=== PATIENT | male | born 1980 | race Caucasian/White ===

== ENCOUNTER 2019-03-23 20:09 | Emergency (ER) | payer BC, OTHER ==
--- NOTE | 2019-03-23 20:18 | EDM.PDOC ---
ED HPI GENERAL MEDICAL PROBLEM - General Chief Complaint: Lower Extremity Injury/Pain Stated Complaint: AMB KNEE INJURY Time Seen by Provider: 03/23/19 20:15 - History of Present Illness INITIAL COMMENTS - FREE TEXT/NARRATIVE: HISTORY AND PHYSICAL: History of present illness: Patient is a 38-year-old white male with history of intermittent patellar subluxation presents with a concern of right patellar subluxation similar prior this is laterally displaced and he presents via paramedics. He denies other trauma or concern Review of systems: As per history of present illness and below otherwise all systems reviewed and negative. Past medical history: As per history of present illness and as reviewed below otherwise noncontributory. Surgical history: As per history of present illness and as reviewed below otherwise noncontributory. Social history: No reported history of drug or alcohol abuse. Family history: As per history of present illness and as reviewed below otherwise noncontributory. Physical exam: HEENT: Atraumatic, normocephalic, pupils reactive, negative for conjunctival pallor or scleral icterus, mucous membranes moist, throat clear, neck supple, nontender, trachea midline. Lungs: Clear to auscultation, breath sounds equal bilaterally, chest nontender. Heart: S1S2, regular, negative for clicks, rubs, or JVD. Abdomen: Soft, nondistended, nontender. Negative for masses or hepatosplenomegaly. Negative for costovertebral tenderness. Pelvis: Stable nontender. Genitourinary: Deferred. Rectal: Deferred. Extremities: Obvious lateral subluxation of his patella that on arrival with extension and minor manipulation reduced successfully neurovascular exam status post is normal Neuro: Awake, alert, oriented. Cranial nerves II through XII unremarkable. Cerebellum unremarkable. Motor and sensory unremarkable throughout. Exam nonfocal. Diagnostics: X-ray right knee Therapeutics: Knee immobilizer right knee Impression: #1 patellar subluxation status post reduction Definitive disposition and diagnosis as appropriate pending reevaluation and review of above. - Related Data Allergies Allergy/AdvReac Type Severity Reaction Status Date / Time No Known Allergies Allergy Verified 03/23/19 20:14 Home Meds: Home Meds . [No Known Home Meds] 03/23/19 [History] Review of Systems - Review of Systems Review Of Systems: ROS reveals no pertinent complaints other than HPI. ED EXAM, GENERAL - Physical Exam Exam: See Below (See dictation) Departure - Departure Time of Disposition: 20:17 Disposition: Home, Self-Care 01 Condition: Good Clinical Impression: Patellar subluxation - Discharge Information Referrals: PCP,None [Primary Care Provider] - Additional Instructions: The following information is given to patients seen in the emergency department who are being discharged to home. This information is to outline your options for follow-up care. We provide all patients seen in our emergency department with a follow-up referral. The need for follow-up, as well as the timing and circumstances, are variable depending upon the specifics of your emergency department visit. If you don't have a primary care physician on staff, we will provide you with a referral. We always advise you to contact your personal physician following an emergency department visit to inform them of the circumstance of the visit and for follow-up with them and/or the need for any referrals to a consulting specialist. The emergency department will also refer you to a specialist when appropriate. This referral assures that you have the opportunity for followup care with a specialist. All of these measure are taken in an effort to provide you with optimal care, which includes your followup. Under all circumstances we always encourage you to contact your private physician who remains a resource for coordinating your care. When calling for followup care, please make the office aware that this follow-up is from your recent emergency room visit. If for any reason you are refused follow-up, please contact the [facility] emergency department at and asked to speak to the emergency department charge nurse. [facility] Professional [address], [address] [place] [address] Knee immobilizer as directed follow-up orthopedic surgery/private medical doctor as needed as discussed and return as needed as discussed
--- NOTE | 2019-03-23 20:58 | CR ---
INDICATION: Postreduction COMPARISON: None available. TECHNIQUE: The right knee was examined with AP and lateral views for a total of two views. FINDINGS: Examination is performed through an external stabilizer which limits fine detail. There is no sign of fracture or dislocation. The medial and lateral compartments are normal in height. The external stabilizer partially obscures the suprapatellar region, and I cannot exclude a joint effusion. No soft tissue abnormality is seen. IMPRESSION: Anatomic alignment of the knee following reduction. Cannot exclude a joint effusion. Dictated by Quoc Larios MD @ Mar 23 2019 8:54PM Signed by Dr. Quoc Larios @ Mar 23 2019 8:57PM
== END 2019-03-23 21:15 | disposition home or self-care (01) ==
LOC: MW.ED 20:09
DX: S83.001A Unspecified subluxation of right patella, initial encounter (principal); X58.XXXA Exposure to other specified factors, initial encounter
CPT/HCPCS: 73560-26-RT; 73560-RT; 99284-25

== ENCOUNTER 2021-05-04 10:08 | Emergency (ER) | payer OTHER ==
--- NOTE | 2021-05-04 10:14 | EDM.PDOC ---
ED HPI GENERAL MEDICAL PROBLEM - General Stated Complaint: CHEST PAINS Time Seen by Provider: 05/04/21 10:13 Source of Information: Reports: Patient History Limitations: Reports: No Limitations - History of Present Illness INITIAL COMMENTS - FREE TEXT/NARRATIVE: 40-year-old male past medical history hypertension presents for chest pain. Patient states that pain started about 4 or 5 hours ago while he was laying down trying to go to sleep. It is a mid substernal pressure-like pain. He can also feel his heart racing. Denies nausea, vomiting, diaphoresis. Denies histories of blood clots. Denies lower extremity swelling or pain. CHEST Pain Score (Numeric/FACES): 4 - Related Data Allergies Allergy/AdvReac Type Severity Reaction Status Date / Time No Known Allergies Allergy Verified 05/04/21 10:41 Home Meds: Home Meds Diltiazem HCl [Cardizem LA] 120 mg PO DAILY #14 tab.sr.24h 05/04/21 [Rx] Metoprolol Succinate [[place] Sprinkle] 05/04/21 [History] Past Medical History HEENT History: Reports: None Cardiovascular History: Reports: None Respiratory History: Reports: None Gastrointestinal History: Reports: None Genitourinary History: Reports: None Musculoskeletal History: Reports: None Neurological History: Reports: None Psychiatric History: Reports: None Endocrine/Metabolic History: Reports: None Hematologic History: Reports: None Immunologic History: Reports: None Oncologic (Cancer) History: Reports: None Dermatologic History: Reports: None - Past Surgical History Head Surgeries/Procedures: Reports: None HEENT Surgical History: Reports: None Cardiovascular Surgical History: Reports: None Respiratory Surgical History: Reports: None GI Surgical History: Reports: None Male Surgical History: Reports: None Endocrine Surgical History: Reports: None Neurological Surgical History: Reports: None Musculoskeletal Surgical History: Reports: None Oncologic Surgical History: Reports: None Dermatological Surgical History: Reports: None Social & Family History - Family History Family Medical History: No Pertinent Family History - Caffeine Use Caffeine Use: Reports: Coffee ED ROS GENERAL - Review of Systems Review Of Systems: Comprehensive ROS is negative, except as noted in HPI. ED EXAM, GENERAL - Physical Exam Exam: See Below Exam Limited By: No Limitations General Appearance: Alert, WD/WN, No Apparent Distress Ears: Hearing Grossly Normal Throat/Mouth: Normal Voice, No Airway Compromise Head: Atraumatic, Normocephalic Neck: Normal Inspection Respiratory/Chest: No Respiratory Distress, Lungs Clear, Normal Breath Sounds, No Accessory Muscle Use Cardiovascular: Normal Peripheral Pulses, No Edema, Tachycardia, Irregularly Irregular Extremities: Normal Inspection, Other (Lower extremities symmetric without any erythema, warmth, tenderness to palpation) Neurological: Alert, Normal Cognition, Normal Gait Psychiatric: Normal Affect, Normal Mood Skin Exam: Warm, Dry, Intact, Normal Color #1 Interpretation EKG Date: 05/04/21 Time: 01:00 Rhythm: A-Fib Rate (Beats/Min): 100 [place]: Normal P-Wave: Absent QRS: Normal ST-T: Depressed (<1-mm in V2, V3, V4, V5, V6) QT: Normal Comparison: NA - No Prior EKG EKG Interpretation Comments: atrial fibrillation, STD in lateral leads Course - Vital Signs Last Recorded V/S: Last Vital Signs Temp 98.2 F 05/04/21 10:15 Pulse 71 05/04/21 11:36 Resp 18 05/04/21 11:36 BP 108/75 05/04/21 11:36 Pulse Ox 97 05/04/21 11:36 - Orders/Labs/Meds Orders: Active Orders 24 hr Category Date Time Status Cardiac Monitoring [RC] . DIRECTED Care 05/04/21 10:16 Active EKG Documentation Completion [RC] STAT Care 05/04/21 10:16 Active Pulse Oximetry [RC] ASDIRECTED Care 05/04/21 10:16 Active Sodium Chloride 0.9% [Saline Flush] Med 05/04/21 10:16 Active 10 ml FLUSH ASDIRECTED PRN Sodium Chloride 0.9% [Saline Flush] Med 05/04/21 10:16 Active 2.5 ml FLUSH ASDIRECTED PRN Saline Lock Insert [OM.PC] Stat Oth 05/04/21 10:16 Ordered Medication Orders Sodium Chloride (Sodium Chloride 0.9% 10 Ml Syringe) 10 ml FLUSH ASDIRECTED PRN PRN Reason: Keep Vein Open Last Admin: 05/04/21 10:28 Dose: 10 ml Documented by: CHAIM Sodium Chloride (Sodium Chloride 0.9% 2.5 Ml Syringe) 2.5 ml FLUSH ASDIRECTED PRN PRN Reason: Keep Vein Open Last Admin: 05/04/21 10:28 Dose: 2.5 ml [facility]ed [facility] Labs: Laboratory Tests 05/04/21 05/04/21 05/04/21 Range/Units 10:30 10:30 10:30 WBC 9.31 (4.0-11.0) K/uL RBC 5.58 (4.50-5.90) M/uL Hgb 17.1 H (13.0-17.0) g/dL Hct 47.9 (38.0-50.0) % MCV 85.8 (80.0-98.0) fL MCH 30.6 (27.0-32.0) pg MCHC 35.7 (31.0-37.0) g/dL RDW Std Deviation 40.4 (28.0-62.0) fl RDW Coeff of Levi 13 (11.0-15.0) % Plt Count 235 (150-400) K/uL MPV 11.90 (7.40-12.00) fL Neut % (Auto) 53.7 (48.0-80.0) % Lymph % (Auto) 36.3 (16.0-40.0) % Forrest % (Auto) 8.6 (0.0-15.0) % Eos % (Auto) 1.2 (0.0-7.0) % Baso % (Auto) 0.2 (0.0-1.5) % Neut # (Auto) 5.0 (1.4-5.7) K/uL Lymph # (Auto) 3.4 H (0.6-2.4) K/uL Forrest # (Auto) 0.8 (0.0-0.8) K/uL Eos # (Auto) 0.1 (0.0-0.7) K/uL Baso # (Auto) 0.0 (0.0-0.1) K/uL Nucleated RBC % 0.0 /100WBC Nucleated RBCs # 0 K/uL INR 1.09 APTT 27.2 (18.6-31.3) SEC D-Dimer, Quantitative 0.20 (0.0-0.50) mg/L FEU Sodium 138 (136-148) mmol/L Potassium 3.4 L (3.5-5.1) mmol/L Chloride 103 (98-107) mmol/L Carbon Dioxide 22.8 (21.0-32.0) mmol/L BUN 19 H (7.0-18.0) mg/dL Creatinine 1.2 (0.8-1.3) mg/dL Est Cr Clr Drug Dosing 102.47 mL/min Estimated GFR (MDRD) > 60.0 ml/min Glucose 109 H (74-106) mg/dL Calcium 9.4 (8.5-10.1) mg/dL Total Bilirubin 0.4 (0.2-1.0) mg/dL AST 25 (15-37) IU/L ALT 45 (14-63) IU/L Alkaline Phosphatase 72 (46-116) U/L Troponin I < 0.050 (0.000-0.056) ng/mL B-Natriuretic Peptide (<100) PG/ML Total Protein 7.8 (6.4-8.2) g/dL Albumin 3.9 (3.4-5.0) g/dL Globulin 3.9 (2.6-4.0) g/dL Albumin/Globulin Ratio 1.0 (0.9-1.6) TSH, Ultra Sensitive 1.04 (0.36-3.74) uIU/mL 05/04/21 Range/Units 10:30 WBC (4.0-11.0) K/uL RBC (4.50-5.90) M/uL Hgb (13.0-17.0) g/dL Hct (38.0-50.0) % MCV (80.0-98.0) fL MCH (27.0-32.0) pg MCHC (31.0-37.0) g/dL RDW Std Deviation (28.0-62.0) fl RDW Coeff of Levi (11.0-15.0) % Plt Count (150-400) K/uL MPV (7.40-12.00) fL Neut % (Auto) (48.0-80.0) % Lymph % (Auto) (16.0-40.0) % Forrest % (Auto) (0.0-15.0) % Eos % (Auto) (0.0-7.0) % Baso % (Auto) (0.0-1.5) % Neut # (Auto) (1.4-5.7) K/uL Lymph # (Auto) (0.6-2.4) K/uL Forrest # (Auto) (0.0-0.8) K/uL Eos # (Auto) (0.0-0.7) K/uL Baso # (Auto) (0.0-0.1) K/uL Nucleated RBC % /100WBC Nucleated RBCs # K/uL INR APTT (18.6-31.3) SEC D-Dimer, Quantitative (0.0-0.50) mg/L FEU Sodium (136-148) mmol/L Potassium (3.5-5.1) mmol/L Chloride (98-107) mmol/L Carbon Dioxide (21.0-32.0) mmol/L BUN (7.0-18.0) mg/dL Creatinine (0.8-1.3) mg/dL Est Cr Clr Drug Dosing mL/min Estimated GFR (MDRD) ml/min Glucose (74-106) mg/dL Calcium (8.5-10.1) mg/dL Total Bilirubin (0.2-1.0) mg/dL AST (15-37) IU/L ALT (14-63) IU/L Alkaline Phosphatase (46-116) U/L Troponin I (0.000-0.056) ng/mL B-Natriuretic Peptide 60 (<100) PG/ML Total Protein (6.4-8.2) g/dL Albumin (3.4-5.0) g/dL Globulin (2.6-4.0) g/dL Albumin/Globulin Ratio (0.9-1.6) TSH, Ultra Sensitive (0.36-3.74) uIU/mL Meds: Medications Generic Name Dose Route Start Last Admin Trade Name Freq PRN Reason Stop Dose Admin Sodium Chloride 10 ml 05/04/21 10:16 05/04/21 10:28 Sodium Chloride 0.9% 10 Ml Syringe FLUSH 10 ml ASDIRECTED PRN Administration Keep Vein Open Sodium Chloride 2.5 ml 05/04/21 10:16 05/04/21 10:28 Sodium Chloride 0.9% 2.5 Ml Syringe FLUSH 2.5 ml ASDIRECTED PRN Administration Keep Vein Open Discontinued Medications Generic Name Dose Route Start Last Admin Trade Name Freq PRN Reason Stop Dose Admin Aspirin 324 mg 05/04/21 10:16 05/04/21 10:27 Aspirin 81 Mg Tab.Chew PO 05/04/21 10:17 324 mg ONETIME ONE Administration Diltiazem HCl 25 mg 05/04/21 10:17 05/04/21 10:27 Diltiazem 25 Mg/5 Ml Sdv IVPUSH 05/04/21 10:18 25 mg ONETIME ONE Administration Diltiazem HCl 30 mg 05/04/21 11:42 Diltiazem Ir 30 Mg Tab PO 05/04/21 11:43 ONETIME ONE Sodium Chloride 1,000 mls @ 999 mls/hr 05/04/21 10:16 05/04/21 10:27 Normal Saline IV 05/04/21 11:16 999 mls/hr .Bolus ONE Administration - Re-Assessments/Exams Free Text/Narrative Re-Assessment/Exam: 05/04/21 10:20 Patient presents with chest pain. Noted to have new onset atrial fibrillation on EKG with lateral STD. His heart rate when I was at bedside vacillated between high 90s and low 130s. Will give Cardizem. Will get cardiac work-up labs. Will give aspirin. Patient's CHADS-VASc score is 1 05/04/21 11:51 Patient's labs are unremarkable. Had a long discussion with patient and offered observation admission for new onset A. fib versus discharge home with close follow-up with cardiology. Patient elects to follow-up with cardiology. Given his [id number] score of 1 will start patient on full dose aspirin daily until he is able to follow-up with cardiology to come up with a more definitive solution. Patient is already on metoprolol though he cannot recall his dose. Will start patient on Cardizem as well. Precautions were discussed at length including development of chest pain, shortness of breath, rapid heart rate. Patient understands return precautions. Departure - Departure Time of Disposition: 11:52 Disposition: Home, Self-Care 01 Condition: Good Clinical Impression: Atrial fibrillation Qualifiers: Atrial fibrillation type: unspecified Qualified Code(s): I48.91 - Unspecified atrial fibrillation - Discharge Information Prescriptions: Diltiazem HCl [Cardizem LA] 120 mg PO DAILY #14 tab.sr.24h Instructions: Atrial Fibrillation Additional Instructions: Your work-up is remarkable for new onset atrial fibrillation. You need to start taking a full-strength daily aspirin. You also need to start taking Cardizem daily to help control your heart rate. Both these medications have been sent to your pharmacy. You need to follow-up with a drivers' cash clerk within the next week for further work-up and management. If you develop chest pain or if your heart feels like it is racing then you should come back to the hospital for reassessment. You were placed on our cardiology follow-up list so they should be calling you to help set up an appointment but if you do not get a call from them their number is provided below as well. [facility] [address] [place] [id number] The following information is given to patients seen in the emergency department who are being discharged to home. This information is to outline your options for follow-up care. We provide all patients seen in our emergency department with a follow-up referral. The need for follow-up, as well as the timing and circumstances, are variable depending upon the specifics of your emergency department visit. If you don't have a primary care physician on staff, we will provide you with a referral. We always advise you to contact your personal physician following an emergency department visit to inform them of the circumstance of the visit and for follow-up with them and/or the need for any referrals to a consulting specialist. The emergency department will also refer you to a specialist when appropriate. This referral assures that you have the opportunity for follow-up care with a specialist. All of these measure are taken in an effort to provide you with optimal care, which includes your follow-up. Under all circumstances we always encourage you to contact your private physician who remains a resource for coordinating your care. When calling for follow-up care, please make the office aware that this follow-up is from your recent emergency room visit. If for any reason you are refused follow-up, please contact the [facility] Emergency Department at and asked to speak to the emergency department charge nurse. Please follow up with your primary care physician. If you do not have a primary care physician, see below: [facility] [address] [place] [id number] [facility] [address] [place] [address] [facility] [address] [place] [address] Sepsis Event Note (ED) - Focused Exam Vital Signs: Vital Signs Temp Pulse Resp BP Pulse Ox 05/04/21 11:36 71 18 108/75 97 05/04/21 10:44 74 18 107/76 97 05/04/21 10:15 98.2 F 82 18 138/86 98 - My Orders Last 24 Hours: My Active Orders 05/04/21 10:16 Cardiac Monitoring [RC] . DIRECTED EKG Documentation Completion [RC] STAT Pulse Oximetry [RC] ASDIRECTED Sodium Chloride 0.9% [Saline Flush] 10 ml FLUSH ASDIRECTED PRN Sodium Chloride 0.9% [Saline Flush] 2.5 ml FLUSH ASDIRECTED PRN Saline Lock Insert [OM.PC] Stat - Assessment/Plan Last 24 Hours: My Active Orders 05/04/21 10:16 Cardiac Monitoring [RC] . DIRECTED EKG Documentation Completion [RC] STAT Pulse Oximetry [RC] ASDIRECTED Sodium Chloride 0.9% [Saline Flush] 10 ml FLUSH ASDIRECTED PRN Sodium Chloride 0.9% [Saline Flush] 2.5 ml FLUSH ASDIRECTED PRN Saline Lock Insert [OM.PC] Stat
[2021-05-04] MEDS ORDERED: Sodium Chloride 0.9% 10 ML Syringe FLUSH PRN (10:16)
[2021-05-04] MEDS ORDERED: Sodium Chloride 0.9% 2.5 ML Syringe FLUSH PRN (10:16)
[2021-05-04] MEDS ORDERED: Aspirin 81 MG Tab.Chew PO ONE (10:16)
[2021-05-04] MEDS ORDERED: Sodium Chloride 0.9% 1,000 ML IV ONE (10:16)
[2021-05-04] MEDS ORDERED: Diltiazem 25 MG/5 ML SDV IVPUSH ONE (10:17)
[2021-05-04 11:14] LABS: BLOOD UREA NITROGEN,BUN 19 mg/dL (7.0-18.0); CARBON DIOXIDE,CO2 22.8 mmol/L (21.0-32.0); CHLORIDE,CL 103 mmol/L (98-107); GLUCOSE RANDOM 109 mg/dL (74-106); POTASSIUM,K 3.4 mmol/L (3.5-5.1); SODIUM,NA 138 mmol/L (136-148)
--- NOTE | 2021-05-04 11:24 | CR ---
INDICATION: Chest pain. TECHNIQUE: Portable upright AP view of the chest. COMPARISON: None. FINDINGS: The cardiac, mediastinal and hilar contours are within normal limits. Pulmonary vasculature appears unremarkable. Lungs are grossly clear. No appreciable pleural fluid. No pneumothorax. IMPRESSION: No radiographic signs of acute cardiopulmonary disease. Dictated by Kevin Sen MD @ 05/04/2021 11:23:59 AM Dictated by: Kevin Sen MD @ 05/04/2021 11:24:14 (Electronically Signed)
[2021-05-04] MEDS ORDERED: Diltiazem IR 30 MG Tab PO ONE (11:42)
== END 2021-05-04 12:29 | disposition home or self-care (01) ==
LOC: MW.ED 10:08
DX: I48.91 Unspecified atrial fibrillation (principal); Z79.899 Other long term (current) drug therapy
CPT/HCPCS: 36415; 71045; 80053; 83880; 84443; 84484; 85025; 85379; 85610; 85730; 96374; 99285; A9270; J3490; J7030

== ENCOUNTER 2022-07-22 21:01 | Emergency (ER) | payer OTHER ==
[2022-07-22] MEDS ORDERED: Rivaroxaban 15 MG Tab PO STA (22:58)
== END 2022-07-22 23:51 | disposition home or self-care (01) ==
LOC: MW.ED 21:01
DX: I82.402 Acute embolism and thrombosis of unspecified deep veins of left lower extremity (principal); I10 Essential (primary) hypertension; Z79.899 Other long term (current) drug therapy
CPT/HCPCS: 93971; 99283; A9270